=== PATIENT | male | born 1980 | race Caucasian/White ===

== ENCOUNTER 2017-02-20 10:34 | Emergency (ER) | payer OTHER ==
[~2017-02-20] VITALS: Ht 170.2 cm; Wt 65.8 kg
--- NOTE | 2017-02-20 10:55 | ED DYSPNEA/ASTHMA COMPLAINT ---
History of Present Illness General Chief Complaint: General Adult Stated Complaint: CHEST DISCOMFORT AND SOB Source: patient Exam Limitations: no limitations Vital Signs & Intake/Output Vital Signs & Intake/Output Vital Signs Date Time Temp Pulse Resp B/P B/P Pulse O2 O2 Flow FiO2 Mean Ox Delivery Rate 02/20 1233 76 16 128/70 98 Room Air 02/20 1137 99 Room Air 02/20 1040 98.7 80 18 156/100 100 Room Air Allergies Coded Allergies: NO KNOWN ALLERGIES (10/28/12) Reconcile Medications Benzonatate (Tessalon Perle) 100 MG CAPSULE 1 CAP PO TID PRN COUGH Methylprednisolone. (Medrol) 4 MG TAB.DS.PK 1 DP PO AD INFLAMMATION 6 on day 1 then reduce by one tablet daily until gone Triage Note: 36 YO MALE TO ER C/O CHEST PAIN AND NUMBNESS IN L ARM LASTING 30 SECONDS LAST PM. STATES HAS HAD A NONPRODUCTIVE COUGH FOR APPROX 1 MONTH. STATES HE WORKS WITH "[employer]" STATES CHEST FEELS TIGHT AT THIS TIME. +DIRRHEA TODAY. DENIES N/V Triage Nurses Notes Reviewed? 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 Patient states that yesterday while at rest 24 hours ago he had acute onset of left-sided chest pain with left arm paresthesia palpitations and diaphoresis. Patient states that the symptoms lasted 30 seconds and was completely asymptomatic the rest of the day. Patient states that 2 hours prior to arrival again he had acute onset of left-sided chest pain however no other associated symptoms occurred. Chest pain lasted 30 seconds again. Patient has been asymptomatic since. Patient denies any illicit drug use denies any cocaine use denies any fever chills headache arm pain jaw pain nausea vomiting leg swelling hemoptysis. Patient denies any history of pulmonary embolism or DVT recent travel recent surgery. Patient currently is asymptomatic. Denies any cardiac family history before the age of 50 (SANGITA ROSARIO,ONDINA) Past History Travel History Traveled to [place] past 21 day No Medical History Any Pertinent Medical History? 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 No (ONDINA ALBARRAN) Review of Systems Review of Systems Constitutional: Reports: no symptoms. EENTM: Reports: no symptoms. Respiratory: Reports: see HPI, cough. Cardiovascular: Reports: see HPI, chest pain. GI: Reports: no symptoms. Genitourinary: Reports: no symptoms. Musculoskeletal: Reports: no symptoms. Skin: Reports: no symptoms. Neurological/Psychological: Reports: no symptoms. Hematologic/Endocrine: Reports: no symptoms. Immunologic/Allergic: Reports: no symptoms. All Other Systems: Reviewed and Negative (ONDINA ALBARRAN) Physical Exam Physical Exam General Appearance: no apparent distress, alert, comfortable Respiratory: normal breath sounds, chest non-tender, no respiratory distress Comments: Well-developed well-nourished person in no acute distress HEENT: Normal EENT exam, extraocular motion intact, no nystagmus. Pupils equally round and reactive to light and accommodation. Nose is atraumatic. External auditory canal and Tympanic membranes clear. Pharynx normal. No swelling or edema. Neck: Supple, no lymphadenopathy, normal range of motion without pain or tenderness Back: Nontender, no CVA tenderness. Cardiovascular: Regular rate and rhythms no murmurs rubs or gallops, normal JVP Respiratory: Chest nontender. No respiratory distress.breath sounds clear to auscultation bilaterally Abdomen: Soft, nontender nondistended, no appreciable organomegaly. Normal bowel sounds. No ascites Extremity: No edema, no calf tenderness to palpation, normal and equal pulses. Neuro: Alert oriented x3, motor sensory normal, Skin: No appreciable rash on exposed skin, skin is warm and dry. Psych: Mood and affect is normal, memory and judgment is normal. Core Measures ACS in differential dx? Yes Severe Sepsis Present: No Septic Shock Present: No (ONDINA ALBARRAN) Progress Differential Diagnosis: asthma, AMI, bronchitis, costochondritis, CHF, COPD, musculoskeletal pain, pericarditis, pulmonary embolism, pneumonia, pneumothorax, rib fracture, unstable angina Plan of Care: Orders Procedure Date/time Status Telemetry/Crisis Worker 02/20 112 Active THYROID STIMULATING HORMONE 02/20 1125 Complete TROPONIN LEVEL 02/20 1125 Complete FREE T4 02/20 1125 Complete COMPREHENSIVE METABOLIC PANEL 02/20 1125 Complete CBC WITHOUT DIFFERENTIAL 02/20 112 Complete EKG 02/20 1042 Active Laboratory Tests 02/20/17 1145: Anion Gap 13, Estimated GFR > 60, BUN/Creatinine Ratio 13.8, Glucose 99, Calcium 10.0, Total Bilirubin 0.9, AST 21, ALT 42, Alkaline Phosphatase 70, Troponin I < 0.01, Total Protein 7.4, Albumin 4.8, Globulin 2.6, Albumin/Globulin Ratio 1.8, TSH 1.680, Free T4 1.04, CBC w Diff NO MAN DIFF REQ, RBC 5.15, MCV 91.6, MCH 30.8, RDW 12.3, MPV 7.2 L, Gran % 71.0, Lymphocytes % 16.5 L, Monocytes % 10.7 H, Eosinophils % 1.3, Basophils % 0.5, Absolute Granulocytes 4.4, Absolute Lymphocytes 1.0 L, Absolute Monocytes 0.7 H, Absolute Eosinophils 0.1, Absolute Basophils 0, PUBS MCHC 33.6 PERC SCORED - 0 Patient currently is resting comfortably at bedside EKG was unremarkable patient currently is asymptomatic claim examiner placed. Patient was reevaluated on multiple occasions and had no exacerbation of symptoms. Troponin was unremarkable. Blood work was unremarkable chest x-ray unremarkable. Patient most likely has symptoms of chest wall pain due to persistent coughing episodes. Patient was strongly advised to begin using ventilation respiration protective wear when around the fumes at work. Upon discharge patient looks well no apparent distress and will comply with discharge instructions and had no questions. Sensitivity of the troponin was high as patient's symptoms was over 24 hours ago I do not suspect patient had a cardiovascular or pulmonary acute process for patients symptoms and physical exam findings and patient's entire workup in the emergency room was unremarkable (SANGITA ROSARIO,ONDINA) Diagnostic Imaging: Viewed by Me: Radiology Read. Radiology Impression: no acute abnormality Initial ED EKG: normal intervals, normal p-waves, normal QRS complex (75 BPM, BORDERLINE LAD) Comments: PATIENT: KEVAN BAIN PRESENT AGE: 36 PATIENT ACCOUNT NO: [id number] : 82 LOCATION: [facility] ([facility] ORDERING PHYSICIAN: ONDINA ROSARIO SERVICE DATE: 02/20/17 EXAM TYPE: RAD - XRY-CHEST XRAY, PA AND LATERAL EXAMINATION: CHEST 2 VIEWS CLINICAL INFORMATION: Chest pain. COMPARISON: None. TECHNIQUE: PA and lateral views of the chest were obtained. FINDINGS: The cardiac silhouette is not enlarged. The mediastinal and hilar contours are unremarkable. There are neither pleural effusions nor pneumothoraces. There are no consolidations. The osseous structures are unremarkable. IMPRESSION: No evidence for acute disease. DICTATED BY: CLARENCE FREEMAN MD DATE/TIME DICTATED:02/20/171156 BUSINESS SUPPORT:NOELLE (ONDINA ALBARRAN) Departure Departure Disposition: HOME OR SELF CARE Condition: Stable Clinical Impression Primary Impression: Cough Secondary Impressions: Chest pain Referrals: NORMAN PEREZ MD (PCP/Family) Additional Instructions: As discussed always use a protective device when you are working around the boats to improve YOUR symptoms. Begin the prescription of Medrol Dosepak for inflammation and Tessalon Perles for cough. Prescriptions are waiting a [facility] pharmacy. If no better in 5 days follow-up with primary care doctor. If symptoms worsen return to emergency room. Please provide your primary care doctor with all blood work and EKG and chest x-ray copies provided to you in the emergency room Departure Forms: Customer Survey General Discharge Information Prescriptions: Current Visit Scripts Methylprednisolone. (Medrol) 1 DP PO AD #1 DP 6 on day 1 then reduce by one tablet daily until gone Benzonatate (Tessalon Perle) 1 CAP PO TID PRN COUGH #21 CAP (ONDINA ALBARRAN) PA/RESEARCH PROGRAM COORDINATOR Co-Sign Statement Statement: ED Attending supervision documentation- [] I saw and evaluated the patient. I have also reviewed all the pertinent lab results and diagnostic results. I agree with the findings and the plan of care as documented in the PA's/RESEARCH PROGRAM COORDINATOR's documentation. [X] I have reviewed the ED Record and agree with the PA's/RESEARCH PROGRAM COORDINATOR's documentation. [] Additions or exceptions (if any) to the PAs/RESEARCH PROGRAM COORDINATOR's note and plan are summarized below: [] (SALTY RICHARDSON DO) Critical Care Note Critical Care Note Critical Care Time: non-applicable (ONDINA ALBARRAN)
--- NOTE | 2017-02-20 12:00 | RADIOLOGY REPORT ---
EXAMINATION: CHEST 2 VIEWS CLINICAL INFORMATION: Chest pain. COMPARISON: None. TECHNIQUE: PA and lateral views of the chest were obtained. FINDINGS: The cardiac silhouette is not enlarged. The mediastinal and hilar contours are unremarkable. There are neither pleural effusions nor pneumothoraces. There are no consolidations. The osseous structures are unremarkable. IMPRESSION: No evidence for acute disease.
[2017-02-20 12:04] LABS: ABSOLUTE BASOPHIL COUNT 0 /CUMM (0.0-0.2); ABSOLUTE EOSINOPHIL COUNT 0.1 /CUMM (0.0-0.7); ABSOLUTE GRANULOCYTE CT 4.4 /CUMM (1.4-6.5); ABSOLUTE MONOCYTE COUNT 0.7 /CUMM (0.10-0.60); BASOPHIL % 0.5 % (0.0-2.0); EOSINOPHIL % 1.3 % (0-5); HEMATOCRIT 47.2 % (42-52); MEAN CORPUSCULAR HGB 30.8 PG (27.0-31.0); MEAN CORPUSCULAR HGB CONC 33.6 G/DL (33.0-37.0); MEAN CORPUSCULAR VOLUME 91.6 FL (80.0-94.0); MEAN PLATELET VOLUME 7.2 FL (7.4-10.4); PLATELET COUNT 153 /CUMM (130-400); RBC DISTRIBUTION WIDTH 12.3 % (11.5-14.5); RED BLOOD CELL CT 5.15 /CUMM (4.70-6.10); WHITE BLOOD CELL COUNT 6.2 /CUMM (4.8-10.8)
[2017-02-20 12:33] VITALS: BP 128/70
[2017-02-20] MEDS ORDERED: MEDROL4 M2 PO (12:38)
[2017-02-20] MEDS ORDERED: TESSALON PERLE100 M1 PO (12:38)
== END 2017-02-20 12:52 ==
LOC: ERH 10:34
PROVIDERS: Physician Assistant
DX: R05 Cough (principal); R07.9 Chest pain, unspecified
CPT/HCPCS: 93005; 93010

== ENCOUNTER 2018-03-18 19:38 | Emergency (ER) | payer OTHER ==
[~2018-03-18] VITALS: Ht 172.7 cm; Wt 65.8 kg
[~2018-03-18 19:38] MED LIST: MEDROL4 M2 PO; TESSALON PERLE100 M1 PO
[2018-03-18] MEDS ORDERED: AMOX-CLAV 875-1 EACH PO (20:26)
--- NOTE | 2018-03-18 20:30 | ED SKIN/ALLERGY COMPLAINT ---
History of Present Illness General Chief Complaint: Animal/Insect Bite Stated Complaint: RIGHT ANKLE SWELLING S/P BEE STING Source: patient Exam Limitations: no limitations Vital Signs & Intake/Output Vital Signs & Intake/Output Vital Signs Date Time Temp Pulse Resp B/P B/P Pulse O2 O2 Flow FiO2 Mean Ox Delivery Rate 03/18 1942 98.6 97 18 145/83 98 Room Air Allergies Coded Allergies: NO KNOWN ALLERGIES (10/28/12) Reconcile Medications Amoxicillin/Clavulanate Potass (Amox-Clav 875-125 MG Tablet) 875 MG-125 MG TABLET 1 TAB PO BID CELLULITIS Benzonatate (Tessalon Perle) 100 MG CAPSULE 1 CAP PO TID PRN COUGH Methylprednisolone. (Medrol) 4 MG TAB.DS.PK 1 DP PO AD INFLAMMATION 6 on day 1 then reduce by one tablet daily until gone Triage Note: PT FROM HOME C/O STUNG BY A BEE IN THE BACK OF LEFT ANKLE AROUND 1900 YESTERDAY. PT STATES THAT LAST NIGHT HE TOOK BENADRYL AND THEN THIS EVENING NOTICED AND NOTICED SWELLING 1600 WITH REDNESS AND WARM TO TOUCH. PT ABLE TO AMBULATE. VSS. Triage Nurses Notes Reviewed? yes HPI: 37M no PMH with wasp sting to the right calf yesterday, with worsening of warmth , erythema, and pain today. No systemic symptoms, denying fever, chills, n/v/d, difficulty breathing, throat swelling, abdominal discomfort. No discharge present. No other complaints. Past History Travel History Traveled to [place] past 21 day No Medical History Any Pertinent Medical History? 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 No Review of Systems Review of Systems Constitutional: Reports: no symptoms. EENTM: Reports: no symptoms. Respiratory: Reports: no symptoms. Cardiovascular: Reports: no symptoms. GI: Reports: no symptoms. Genitourinary: Reports: no symptoms. Musculoskeletal: Reports: no symptoms. Skin: Reports: no symptoms. Neurological/Psychological: Reports: no symptoms. Hematologic/Endocrine: Reports: no symptoms. Immunologic/Allergic: Reports: no symptoms. All Other Systems: Reviewed and Negative Physical Exam Physical Exam General Appearance: well developed/nourished, no apparent distress Head: atraumatic, normal appearance Eyes: Bilateral: normal appearance. Ears, Nose, Throat: hearing grossly normal Neck: normal inspection, supple Respiratory: normal breath sounds, chest non-tender, no respiratory distress Cardiovascular: regular rate/rhythm Gastrointestinal: soft, non-tender Back: normal inspection, normal range of motion Extremities: normal inspection, normal range of motion Neurologic/Psych: awake, alert, oriented x 3, normal mood/affect Skin: erythema, warmth, swelling of right posterior lower leg Progress Differential Diagnosis: abscess/cellulitis, allergic reaction, anaphylaxis, angioedema, asthma, contact dermatitis, drug reaction, erythema multiforme, lyme disease, meningitis/sepsis, piyriasis rosea, RMSF, scarlet fever, shingles, syphilis/gonococcemia, toxic shock syndrome, urticaria Plan of Care: Will discharge home with local treatment. Departure Departure Disposition: HOME OR SELF CARE Condition: Stable Clinical Impression Primary Impression: Wasp sting Qualifiers: Encounter type: initial encounter Injury intent: accidental or unintentional Qualified Code: T63.461A - Toxic effect of venom of wasps, accidental (unintentional), initial encounter Secondary Impressions: Cellulitis of right lower leg Referrals: Jose Maria Dos Santos MD (PCP/Family) Additional Instructions: Follow up with your PCP. Keep the area clean and dry. You can use ice, diphenhydramine cream, and Ibuprofen for discomfort. Start and finish the Augmentin if you feel fever, chills, or if the warmth/redness/pain gets worse. Return to ER if new or worsening symptoms. Departure Forms: Customer Survey General Discharge Information Prescriptions: Current Visit Scripts Amoxicillin/Clavulanate Potass (Amox-Clav 875-125 MG Tablet) 1 TAB PO BID #14 TAB
[2018-03-18 21:18] VITALS: BP 134/68
== END 2018-03-18 21:19 ==
LOC: ERH 19:38
DX: T63.461A Toxic effect of venom of wasps, accidental (unintentional), initial encounter (principal)
CPT/HCPCS: J2001

== ENCOUNTER 2018-03-19 22:26 | Emergency (ER) | payer OTHER ==
[~2018-03-19] VITALS: Ht 172.7 cm; Wt 65.8 kg
[~2018-03-19 22:26] MED LIST changes: +AMOX-CLAV 875-1 EACH PO
[2018-03-19 22:31] VITALS: BP 154/89
--- NOTE | 2018-03-19 22:40 | ED SKIN/ALLERGY COMPLAINT ---
History of Present Illness General Chief Complaint: Animal/Insect Bite Stated Complaint: SEEN YESTERDAY, WASP STING WORSE PER PT Source: patient, old records Exam Limitations: no limitations Vital Signs & Intake/Output Vital Signs & Intake/Output Vital Signs Date Time Temp Pulse Resp B/P B/P Pulse O2 O2 Flow FiO2 Mean Ox Delivery Rate 03/19 2231 98.3 73 18 154/89 98 Room Air Allergies Coded Allergies: NO KNOWN ALLERGIES (10/28/12) Reconcile Medications Amoxicillin/Clavulanate Potass (Amox-Clav 875-125 MG Tablet) 875 MG-125 MG TABLET 1 TAB PO BID CELLULITIS Benzonatate (Tessalon Perle) 100 MG CAPSULE 1 CAP PO TID PRN COUGH Methylprednisolone. (Medrol) 4 MG TAB.DS.PK 1 DP PO AD INFLAMMATION 6 on day 1 then reduce by one tablet daily until gone Triage Note: PT TO ER C/C WORSENING REDDNESS, SWELLING TO RIGHT FOOT S/P BEING STUNG BY WASP ON TUESDAY. PT STARTED AUGMENTIN LAST NIGHT FOR SAME. Triage Nurses Notes Reviewed? yes HPI: 37M no PMH with wasp sting to the right calf 2 days ago, with worsening of warmth, erythema, and pain. He was started on Augmentin for cellulitis last night, took a total of 3 doses, with significant worsening of the erythema, pain and swelling of the calf, now extending to the ankle and foot. His range of motion is now limited by swelling and his leg feels tense. He denies fever, chills, n/v/d, abdominal pain, chest pain, palpitations, SOB. He has not noted any foreign bodies or discharge. (Jennifer Ruby MD) Past History Travel History Traveled to [place] past 21 day No Medical History Any Pertinent Medical History? 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 No (Jennifer Ruby MD) Review of Systems Review of Systems Constitutional: Reports: no symptoms. EENTM: Reports: no symptoms. Respiratory: Reports: no symptoms. Cardiovascular: Reports: no symptoms. GI: Reports: no symptoms. Genitourinary: Reports: no symptoms. Musculoskeletal: Reports: no symptoms. Skin: Reports: no symptoms. Neurological/Psychological: Reports: no symptoms. Hematologic/Endocrine: Reports: no symptoms. Immunologic/Allergic: Reports: no symptoms. All Other Systems: Reviewed and Negative (Jennifer Ruby MD) Physical Exam Physical Exam General Appearance: well developed/nourished, no apparent distress Head: atraumatic, normal appearance Eyes: Bilateral: normal appearance. Ears, Nose, Throat: normal pharynx, hearing grossly normal Neck: normal inspection, supple, full range of motion Respiratory: normal breath sounds, chest non-tender, no respiratory distress Cardiovascular: regular rate/rhythm Gastrointestinal: soft, non-tender Back: normal inspection, normal range of motion Extremities: normal inspection, normal range of motion Neurologic/Psych: awake, alert, oriented x 3, normal mood/affect Skin: erythema warmth and tenderness of the left calf extending to the ankle and foot (Jennifer Ruby MD) Progress Differential Diagnosis: abscess/cellulitis, allergic reaction, anaphylaxis, angioedema, contact dermatitis, drug reaction Plan of Care: Orders Procedure Date/time Status BLOOD CULTURE 03/19 2232 Active COMPREHENSIVE METABOLIC PANEL 03/19 2232 Complete CBC WITHOUT DIFFERENTIAL 03/19 2232 Complete Laboratory Tests 03/19/182248: Anion Gap 14, Estimated GFR > 60, BUN/Creatinine Ratio 13.0, Glucose 113 H, Calcium 10.2, Total Bilirubin 1.1, AST 24, ALT 38, Alkaline Phosphatase 69, Total Protein 7.7, Albumin 4.9, Globulin 2.8, Albumin/Globulin Ratio 1.8, CBC w Diff NO MAN DIFF REQ, RBC 5.06, MCV 92.0, MCH 31.0, MCHC 33.7, RDW 12.8, MPV 7.1 L, Gran % 66.4, Lymphocytes % 23.7, Monocytes % 7.5, Eosinophils % 2.1, Basophils % 0.3, Absolute Granulocytes 5.3, Absolute Lymphocytes 1.9, Absolute Monocytes 0.6, Absolute Eosinophils 0.2, Absolute Basophils 0 Microbiology 03/19 2249 BLOOD: Blood Culture - RECD 03/19 2232 BLOOD: Blood Culture - ORD (Jennifer Ruby MD) Departure Departure Condition: Stable Referrals: Jose Maria Dos Santos MD (PCP/Family) Additional Instructions: Follow up with your PCP. Continue ice, Benadryl, elevation. Return to ER if new or worsening symptoms. Departure Forms: Customer Survey General Discharge Information (Flori SAMUELS,Jennifer) Departure Disposition: HOME OR SELF CARE Clinical Impression Primary Impression: Wasp sting Secondary Impressions: Allergic reaction Comments 03/19/18, 23:29.. to my exam... pt with cool foot, not warm/hot... no lymphangitic streaking. non tender to palpation... likely allergic reaction with dependent edema... advocated benadryl 50mg three times a day... encouraged close follow up. (Thaddeus SAMUELS,Gómez Almanza)
[2018-03-19 22:56] LABS: ABSOLUTE BASOPHIL COUNT 0 /CUMM (0.0-0.2); ABSOLUTE EOSINOPHIL COUNT 0.2 /CUMM (0.0-0.7); ABSOLUTE GRANULOCYTE CT 5.3 /CUMM (1.4-6.5); ABSOLUTE LYMPH COUNT 1.9 /CUMM (1.2-3.4); ABSOLUTE MONOCYTE COUNT 0.6 /CUMM (0.10-0.60); BASOPHIL % 0.3 % (0.0-2.0); EOSINOPHIL % 2.1 % (0-5); GRANULOCYTE % 66.4 % (42.2-75.2); HEMATOCRIT 46.6 % (42-52); MEAN CORPUSCULAR HGB CONC 33.7 G/DL (33.0-37.0); MEAN PLATELET VOLUME 7.1 FL (7.4-10.4); PLATELET COUNT 232 /CUMM (130-400); RBC DISTRIBUTION WIDTH 12.8 % (11.5-14.5); RED BLOOD CELL CT 5.06 /CUMM (4.70-6.10)
== END 2018-03-19 23:53 ==
LOC: ERH 22:26
PROVIDERS: Internal Medicine
DX: T63.441A Toxic effect of venom of bees, accidental (unintentional), initial encounter (principal); M79.661 Pain in right lower leg
CPT/HCPCS: 87040